=== PATIENT | female | born 1975 | race Caucasian/White ===

== ENCOUNTER 2020-10-29 12:09 | Outpatient (REF) | payer OTHER, SELFPAY ==
--- NOTE | 2020-10-29 11:30 | PAPFT_PTH ---
PATIENT: BRIAN WOLFE LOC: [facility] U#:[id number] AGE/SX: 45/F ROOM: RE10/29/[address]: MARK Sandoval : 1975 BED: DIS: 10/29/2020 SPEC #: [id number] RECD: 10/29/20 13:09 STATUS: BLAKE REQ #: [id number] ANITA: 10/29/20 11:[address]: Luisa Wadsworth DEPT: [facility] Cytology RECD BY: Laura Watson ENTERED: 10/29/20 13:10 SP TYPE: PAPFT OTHR DR: Unknown,Unknown Tissues: 1 - CX/ENDOCX FOR PAP SMEARS Procedures: PAP THIN PREP/[facility] Screening HPV DNA PROBE Comments: [id number]
== END 2020-10-29 12:10 | disposition home or self-care (01) ==
LOC: LBN 12:09
PROVIDERS: Visit Provider Nurse Practitioner Family
DX: Z12.4 Encounter for screening for malignant neoplasm of cervix (principal); Z11.51 Encounter for screening for human papillomavirus (HPV)
CPT/HCPCS: 88142; 87624

== ENCOUNTER 2024-06-16 13:43 | Outpatient (REF) | payer OTHER, SELFPAY ==
--- NOTE | 2024-06-16 13:20 | PAPFT_PTH ---
PATIENT: BRIAN WOLFE LOC: [facility] U#:[id number] AGE/SX: 48/F ROOM: RE06/16/[address]: Laisha Moss MD : 1975 BED: DIS: 06/16/2024 SPEC #: [id number] RECD: 06/17/24 18:10 STATUS: BLAKE REQ #: [id number] ANITA: 06/16/24 13:[address]: Laisha Moss DEPT: [facility] Cytology RECD BY: Laura Watson ENTERED: 06/17/24 18:11 SP TYPE: PAPFT OTHR DR: Rosa Maria Brito Tissues: 1 - CX/ENDOCX FOR PAP SMEARS Procedures: PAP THIN PREP/[facility] Screening HPV DNA PROBE Comments: [id number] (HPV 16 & 18/45)
== END 2024-06-16 13:44 | disposition home or self-care (01) ==
LOC: LBN 13:43
PROVIDERS: PCP Nurse Practitioner; Visit Provider Obstetrics & Gynecology
DX: N94.9 Unspecified condition associated with female genital organs and menstrual cycle (principal)
CPT/HCPCS: 88142; 87480; 87510; 87624; 87660